=== PATIENT | male | born 1935 | race Caucasian/White ===

== ENCOUNTER 2022-07-25 07:06 | Outpatient (NON) | payer MEDICARE, SELFPAY ==
[2022-07-25 07:29] LABS: Basophils Absolute Auto 0.01 K/mm3 (0.00-0.10); Basophils Percent Auto 0.2 % (0.0-1.0); Eosinophils Absolute Auto 0.02 K/mm3 (0.02-0.50); Eosinophils Percent Auto 0.4 % (1.0-6.0); Hematocrit 33.3 % (37.0-46.0); Hemoglobin 11.2 g/dL (12.4-15.3); Immature Granulocyte Absolute 0.02 K/mm3 (0.00-0.00); Immature Granulocyte Percent A 0.4 % (0.0-0.0); Lymphocytes Absolute Auto 0.45 K/mm3 (1.10-4.50); Lymphocytes Percent Auto 8.9 % (18.0-42.0); Mean Corpuscular HGB Conc 33.6 g/dL (32.0-36.0); Mean Corpuscular Hemoglobin 30.9 pg (27.0-31.0); Mean Corpuscular Volume 91.7 fL (78.0-102.0); Mean Platelet Volume 9.3 fl (8.7-11.0); Monocytes Absolute Auto 0.72 K/mm3 (0.10-0.90); Monocytes Percent Auto 14.2 % (2.0-11.0); Neutrophils Absolute Auto 3.9 K/mm3 (1.7-7.2); Neutrophils Percent Auto 75.9 % (50.0-70.0); Platelet Count Result 246 K/mm3 (150-420); Red Blood Count 3.63 M/mm3 (4.70-6.10); Red Cell Distribution Width 14.2 % (11.6-14.4); White Blood Count 5.1 K/mm3 (4.8-10.8)
[2022-07-25 08:00] LABS: Alanine Aminotransferase 40 U/L (16-63); Albumin Level 2.7 g/dL (3.4-5.0); Alkaline Phosphatase 116 U/L (46-116); Anion Gap 5 mmol/L (8-16); Aspartate Amino Transferase 27 U/L (15-37); Bilirubin,Total 0.9 mg/dL (0.00-1.00); Blood Urea Nitrogen 18 mg/dL (7-18); Calcium 8.2 mg/dL (8.5-10.1); Carbon Dioxide 30 mmol/L (21-32); Chloride 94 mmol/L (98-108); Cholesterol 83 mg/dL (0-200); Estimated Glomerular Filt Rate > 60; Glucose 84 mg/dL (70-99); HDL Direct 40 mg/dL (40-60); LDL Cholesterol Calculated 36 mg/dL (<130); Osmolality Calculated 268 mOsm/kg (285-295); Potassium 4.8 mmol/L (3.5-5.1); Sodium 129 mmol/L (136-145); Total Protein 5.8 g/dL (6.4-8.2); Triglycerides 34 mg/dL (0-150)
[2022-07-25 08:25] LABS: INR 1.1
== END 2022-07-25 07:07 | disposition home or self-care (01) ==
PROVIDERS: Visit Provider Family Medicine
DX: E07.9 Disorder of thyroid, unspecified (principal); I82.409 Acute embolism and thrombosis of unspecified deep veins of unspecified lower extremity; E87.1 Hypo-osmolality and hyponatremia; E78.5 Hyperlipidemia, unspecified
CPT/HCPCS: 36415; 80053; 80061; 85025; 85610

== ENCOUNTER 2022-08-01 06:37 | Outpatient (NON) | payer MEDICARE, SELFPAY ==
[2022-08-01 07:20] LABS: Alanine Aminotransferase 37 U/L (16-63); Albumin Level 2.9 g/dL (3.4-5.0); Alkaline Phosphatase 117 U/L (46-116); Anion Gap 5 mmol/L (8-16); Aspartate Amino Transferase 24 U/L (15-37); Bilirubin,Total 0.9 mg/dL (0.00-1.00); Blood Urea Nitrogen 12 mg/dL (7-18); Calcium 8.7 mg/dL (8.5-10.1); Carbon Dioxide 31 mmol/L (21-32); Chloride 96 mmol/L (98-108); Estimated Glomerular Filt Rate > 60; Glucose 87 mg/dL (70-99); Osmolality Calculated 272 mOsm/kg (285-295); Potassium 4.7 mmol/L (3.5-5.1); Sodium 132 mmol/L (136-145); Total Protein 6.6 g/dL (6.4-8.2)
== END 2022-08-01 06:38 | disposition home or self-care (01) ==
LOC: CHSLAB 06:39
PROVIDERS: Visit Provider Family Medicine
DX: I48.91 Unspecified atrial fibrillation (principal); I50.9 Heart failure, unspecified
CPT/HCPCS: 36415; 80053

== ENCOUNTER 2022-08-29 06:28 | Outpatient (CLI) | payer MEDICARE, SELFPAY ==
--- NOTE | ~2022-08-29 | XR_ITS ---
Portable chest x-ray Comparison: 08/10/2017 Clinical History: CHF Findings: There is minimal bibasilar interstitial prominence. Cardiomediastinal silhouette is stabl e, with pacemaker device, and aortic valve replacement. Bones and soft tissues are unremarkable. Impression: Possible minimal bibasilar chronic interstitial disease or interstitial edema. Status post aortic valve replacement, with pacemaker device. Reviewed, dictated and finalized at [facility]. [facility] Impression: Possible minimal bibasilar chronic interstitial disease or interstitial edema. Status post aortic valve replacement, with pacemaker device.
[2022-08-29 06:45] LABS: Basophils Absolute Auto 0.01 K/mm3 (0.00-0.10); Basophils Percent Auto 0.2 % (0.0-1.0); Eosinophils Absolute Auto 0.16 K/mm3 (0.02-0.50); Eosinophils Percent Auto 3.2 % (1.0-6.0); Hematocrit 40.9 % (37.0-46.0); Immature Granulocyte Absolute 0.01 K/mm3 (0.00-0.00); Immature Granulocyte Percent A 0.2 % (0.0-0.0); Lymphocytes Absolute Auto 0.92 K/mm3 (1.10-4.50); Lymphocytes Percent Auto 18.5 % (18.0-42.0); Mean Corpuscular HGB Conc 31.8 g/dL (32.0-36.0); Mean Corpuscular Hemoglobin 30.2 pg (27.0-31.0); Mean Corpuscular Volume 95.1 fL (78.0-102.0); Mean Platelet Volume 8.8 fl (8.7-11.0); Monocytes Absolute Auto 0.56 K/mm3 (0.10-0.90); Monocytes Percent Auto 11.3 % (2.0-11.0); Neutrophils Absolute Auto 3.3 K/mm3 (1.7-7.2); Neutrophils Percent Auto 66.6 % (50.0-70.0); Platelet Count Result 241 K/mm3 (150-420); Red Cell Distribution Width 14.8 % (11.6-14.4)
[2022-08-29 07:09] LABS: Alanine Aminotransferase 30 U/L (16-63); Albumin Level 2.6 g/dL (3.4-5.0); Alkaline Phosphatase 129 U/L (46-116); Anion Gap 3 mmol/L (8-16); Aspartate Amino Transferase 24 U/L (15-37); Bilirubin,Total 0.7 mg/dL (0.00-1.00); Blood Urea Nitrogen 11 mg/dL (7-18); Calcium 8.6 mg/dL (8.5-10.1); Carbon Dioxide 34 mmol/L (21-32); Chloride 98 mmol/L (98-108); Estimated Glomerular Filt Rate > 60; Glucose 84 mg/dL (70-99); NT Pro B Type Natriuretic Pept 2243 pg/mL (0-450); Osmolality Calculated 278 mOsm/kg (285-295); Potassium 4.7 mmol/L (3.5-5.1); Sodium 135 mmol/L (136-145); Total Protein 6.3 g/dL (6.4-8.2)
[2022-08-29 07:12] LABS: Creatinine Urine < 13.00 mg/dL (40-278); Microalbumin Urine Random < 13.0 mg/L
--- NOTE | 2022-08-29 10:13 | ECG_ITS ---
Rate 70 SC 0 QRSd 161 QT 457 QTc 494 --Hermann-- P QRS 196 T 27 ELECTRONIC VENTRICULAR PACEMAKER BASELINE ARTIFACT- I, II, III, AVR, AVL, AVF, V1-V6 NO FURTHER INTERPRETATION IS POSSIBLE ATYPICAL ECG NO PREVIOUS ECG AVAILABLE FOR COMPARISON Electronically Signed On 08-29-2022 10:26:09 BROOMMAKER by Rhett BOLDEN
== END 2022-08-29 06:29 | disposition home or self-care (01) ==
PROVIDERS: PCP Family Medicine; Visit Provider Family Medicine
DX: I50.9 Heart failure, unspecified (principal); E87.1 Hypo-osmolality and hyponatremia; I48.91 Unspecified atrial fibrillation
CPT/HCPCS: 36415; 71045; 80053; 82043; 83880; 85025; 93005

== ENCOUNTER 2022-09-10 12:42 | Outpatient (CLI) | payer MEDICARE, SELFPAY ==
--- NOTE | ~2022-09-10 | US_ITS ---
EXAMINATION: US venous doppler UE RT DATE: 09/10/2022 13:59 INDICATION: Right hand swelling, redness, and pain TECHNIQUE: Grayscale ultrasound images without and with compression and Doppler ultrasound images of the right upper extremity veins were obtained. COMPARISON: X-ray chest, same date. FINDINGS: The right internal jugular and ulnar veins were not identified. The visualized portions of the right internal jugular vein, subclavian vein, axillary vein, brachial veins, basilic vein, cephalic vein, a nd radial vein are patent. IMPRESSION: 1. Right internal jugular and ulnar veins not identified. 2. No deep venous thrombosis in the remaining visualized veins. Reviewed, dictated and finalized at location K.
--- NOTE | ~2022-09-10 | XR_ITS ---
Clinical Indication: Cough AP and lateral views of the chest: Comparison: 08/29/2022 Findings: There is extensive groundglass pulmonary disease, most compatible moderate pulmonary edema versus possibly multifocal pneumonia.. Cardiomediastinal silhouette is stable, with aortic valve rep lacement and pacemaker device present. Bones and soft tissues are unremarkable. Impression: Extensive groundglass pulmonary disease. Correlate for pulmonary edema versus pneumonia. Aortic valve replacement and pacemaker device present. Reviewed, dictated and finalized at location . Impression: Extensive groundglass pulmonary disease. Correlate for pulmonary edema versus p neumonia. Aortic valve replacement and pacemaker device present.
[2022-09-10 12:58] LABS: Basophils Absolute Auto 0.01 K/mm3 (0.00-0.10); Basophils Percent Auto 0.1 % (0.0-1.0); Hematocrit 36.2 % (37.0-46.0); Hemoglobin 11.7 g/dL (12.4-15.3); Immature Granulocyte Absolute 0.05 K/mm3 (0.00-0.00); Immature Granulocyte Percent A 0.4 % (0.0-0.0); Lymphocytes Absolute Auto 0.66 K/mm3 (1.10-4.50); Lymphocytes Percent Auto 5.9 % (18.0-42.0); Mean Corpuscular HGB Conc 32.3 g/dL (32.0-36.0); Mean Corpuscular Hemoglobin 30.6 pg (27.0-31.0); Mean Corpuscular Volume 94.8 fL (78.0-102.0); Mean Platelet Volume 8.2 fl (8.7-11.0); Monocytes Absolute Auto 0.84 K/mm3 (0.10-0.90); Monocytes Percent Auto 7.5 % (2.0-11.0); Neutrophils Absolute Auto 9.7 K/mm3 (1.7-7.2); Neutrophils Percent Auto 86.1 % (50.0-70.0); Platelet Count Result 241 K/mm3 (150-420); Red Blood Count 3.82 M/mm3 (4.70-6.10); Red Cell Distribution Width 15.1 % (11.6-14.4); White Blood Count 11.2 K/mm3 (4.8-10.8)
[2022-09-10 13:19] LABS: Alanine Aminotransferase 16 U/L (16-63); Albumin Level 2.5 g/dL (3.4-5.0); Alkaline Phosphatase 92 U/L (46-116); Anion Gap 7 mmol/L (8-16); Aspartate Amino Transferase 18 U/L (15-37); Bilirubin,Total 1.3 mg/dL (0.00-1.00); Blood Urea Nitrogen 25 mg/dL (7-18); Calcium 8.3 mg/dL (8.5-10.1); Carbon Dioxide 28 mmol/L (21-32); Chloride 94 mmol/L (98-108); Estimated Glomerular Filt Rate > 60; Glucose 112 mg/dL (70-99); NT Pro B Type Natriuretic Pept 7067 pg/mL (0-450); Osmolality Calculated 273 mOsm/kg (285-295); Potassium 4.5 mmol/L (3.5-5.1); Sodium 129 mmol/L (136-145); Total Protein 6.8 g/dL (6.4-8.2); Troponin I 15.2 ng/L (0.00-60.4)
== END 2022-09-10 12:43 | disposition home or self-care (01) ==
LOC: CHSLAB 12:44
PROVIDERS: PCP Family Medicine; Visit Provider Family Medicine
DX: R13.10 Dysphagia, unspecified (principal); J98.4 Other disorders of lung; Z95.2 Presence of prosthetic heart valve; Z95.0 Presence of cardiac pacemaker; I50.9 Heart failure, unspecified; M79.89 Other specified soft tissue disorders
CPT/HCPCS: 36415; 71046; 80053; 83880; 84484; 85025; 93971

== ENCOUNTER 2022-09-10 14:15 | Observation (INO) | payer MEDICARE, SELFPAY ==
[2022-09-10] VITALS (21 sets, daily range): BP systolic 100–117; BP diastolic 46–72; PULSE 70–86; RESP 15–33; TEMP 36.5–36.7; O2SAT 86–96; BMI 23.0
--- NOTE | 2022-09-10 14:16 | ED.SOB ---
HPI - SOB/Dyspnea General Chief Complaint: Shortness of Breath/Dyspnea Stated Complaint: coughing uo blood Time Seen by Provider: 09/10/22 14:16 Source: RN notes reviewed Mode of arrival: wheelchair Limitations: dementia History of Present Illness HPI Narrative: I was called by patient's primary care physician. senior living staff had reported that he had had a decreased interaction with staff was requiring supplemental oxygen and had coarse breath sounds. His PCP examined him and found him to have significant amount of rhonchi and rales. Outpatient labs were done as well as chest x-ray showing pneumonia versus pulmonary edema. His BNP is elevated as well as his white count slightly elevated 11.2. MD elicited complaint: shortness of breath Pertinent past history: congestive heart failure Onset (ago): day(s) (1) Timing: constant Severity: moderate Exacerbating factors: lying flat and exertion Relieving factors: oxygen Known history of: congestive heart failure Treatment prior to arrival: oxygen Related Data Home oxygen amount: 2 liters Home Medications Medication Instructions Recorded Confirmed B-complex with vitamin C 1 cap PO DAILY 07/24/22 09/10/22 acetaminophen 325 mg tablet 650 mg PO Q6H PRN Pain 07/24/22 09/10/22 (Pharbetol) albuterol sulfate 90 mcg/actuation 2 inh inhalation .Once Daily 07/24/22 09/10/22 aerosol inhaler (ProAir HFA) ascorbic acid (vitamin C) 500 mg 250 mg PO DAILY 07/24/22 09/10/22 tablet aspirin 81 mg tablet,delayed 81 mg PO DAILY 07/24/22 09/10/22 release (Adult Low Dose Aspirin) atorvastatin 40 mg tablet 40 mg PO QHS 07/24/22 09/10/22 cholecalciferol (vitamin D3) 25 25 mcg PO DAILY 07/24/22 09/10/22 mcg (1,000 unit) tablet furosemide 40 mg tablet 40 mg PO QAM 07/24/22 09/10/22 hydrocortisone 2.5 % topical cream 1 applic RECTAL Q12H PRN 07/24/22 09/10/22 with perineal applicator Hemorrhoids (Procto-Med HC) lisinopril 2.5 mg tablet 2.5 mg PO DAILY 07/24/22 09/10/22 metoprolol tartrate 25 mg tablet 25 mg PO BID 07/24/22 09/10/22 omeprazole 20 mg capsule,delayed 20 mg PO BID 07/24/22 09/10/22 release gabapentin 300 mg capsule 300 mg PO TID 09/10/22 09/10/22 loratadine 10 mg tablet 10 mg PO DAILY 09/10/22 09/10/22 Allergies Allergy/AdvReac Type Severity Reaction Status Date / Time ibuprofen Allergy Unknown Unknown Verified 09/10/22 14:42 iodine Allergy Unknown Unknown Verified 09/10/22 14:42 lactose Allergy Unknown Unknown Verified 09/10/22 14:42 Penicillins Allergy Unknown Unknown Verified 09/10/22 14:42 Tomato Allergy Unknown Unknown Uncoded 09/10/22 14:42 Review of Systems Review of Systems: ROS unobtainable: Yes unobtainable due to mental status ( dementia) PMFSH Past Medical History Medical History Acute embolism and thrombosis of unspecified deep veins of unspecified lower extremity Atrial fibrillation CAD (coronary artery disease) Cellulitis of right upper limb Disorder of thyroid, unspecified Gastro-esophageal reflux disease without esophagitis Heart failure Hyperlipidemia Hypo-osmolality and hyponatremia Malignant neoplasm of prostate Presence of automatic (implantable) cardiac defibrillator Sleep apnea Surgical History Surgical History Presence of xenogenic heart valve Social History Social History Smoking status: Never smoker Exam Const: General: alert, confusion (not new) and ill appearing chronically Nutritional Appearance: well nourished Limitations: other limitations ( dementia) HENMT: Head: normal to inspection Ears: external ears normal Face/Nose/Sinus: Normal external nose present Face and sinus: normal facial exam Mouth: Yes moist mucous membranes Eyes: Conjunctivae: conjunctivae normal Pupils: Equal, round and reactive pupils present EOM: EOMs intact bilaterally Neck: Ne
[2022-09-10 15:11] LABS: SARS-CoV-2 RNA PCR Negative (Negative)
[2022-09-10 15:49] LABS: Lactic Acid Reflex 2.2 mmol/L (0.4-2.0)
[2022-09-10] MEDS: SODIUM CHLORIDE 0.9% IV 1,000 ML 150 ML IV CONT (16:18)
--- NOTE | 2022-09-10 16:58 | PC.NURSE ---
NS continued during admission.
[2022-09-10] MEDS: FUROSEMIDE INJ 40 MG/4 ML VIAL IV PUSH (17:20)
[2022-09-10] MEDS: SODIUM CHLORIDE 0.9% IV 1,000 ML 999 ML IV CONT (17:23)
--- NOTE | 2022-09-10 17:56 | ADMGEN ---
This patient, Hao Martinez, was admitted to 2nd Floor Room 208-2. Patient/family oriented to hospital policies and general routines including ID bracelet, bed and alarms, visiting hours, pain management, procedures, bathroom and other care routines, personal items, smoking policy, room service/diet, and visiting hours. Daughter reports he is on a pureed diet at the ut and honey thick liquids Information on how to activate the Rapid Response Team has been discussed. Patient/Family are encouraged to report perceived risks to care and to ask questions if they do not understand what they are told or what they should do.
[2022-09-10] MEDS: METOPROLOL TARTRATE 25 MG TABLET PO (18:05)
[2022-09-10] MEDS: APIXABAN 2.5 MG TABLET 5 MG PO (18:05)
[2022-09-10] MEDS: GABAPENTIN 300 MG CAPSULE PO (18:06)
[2022-09-10 18:26] LABS: Reflex Lactic Acid Yes or No Add Lactic
[2022-09-10] MEDS: IPRATROPIUM 0.5 MG/ALBUTEROL SULFATE 2.5 MG AMPUL.NEB 3 ML INHALATION ×2 (18:34→23:35)
[2022-09-10 19:07] LABS: Lactic Acid 2.4 mmol/L (0.4-2.0)
[2022-09-10] MEDS: traZODone HCL 50 MG TABLET PO (20:28)
[2022-09-10] MEDS: ATORVASTATIN 40 MG TABLET PO (20:28)
[2022-09-10] MEDS: ACETAMINOPHEN 325 MG TABLET 650 MG PO (20:28)
[2022-09-11] VITALS (17 sets, daily range): BP systolic 103–120; BP diastolic 40–71; PULSE 52–86; RESP 16–20; TEMP 36.3–37.1; O2SAT 89–97
[2022-09-11] MEDS: IPRATROPIUM 0.5 MG/ALBUTEROL SULFATE 2.5 MG AMPUL.NEB 3 ML INHALATION ×4 (05:06→23:45)
[2022-09-11 05:11] LABS: Hematocrit 34.1 % (37.0-46.0); Hemoglobin 10.9 g/dL (12.4-15.3); Mean Corpuscular Hemoglobin 30.6 pg (27.0-31.0); Mean Corpuscular Volume 95.8 fL (78.0-102.0); Mean Platelet Volume 8.4 fl (8.7-11.0); Platelet Count Result 202 K/mm3 (150-420); Red Blood Count 3.56 M/mm3 (4.70-6.10); Red Cell Distribution Width 15.3 % (11.6-14.4); White Blood Count 6.3 K/mm3 (4.8-10.8)
[2022-09-11 05:28] LABS: Albumin Level 2.2 g/dL (3.4-5.0); Alkaline Phosphatase 78 U/L (46-116); Anion Gap 7 mmol/L (8-16); Aspartate Amino Transferase 20 U/L (15-37); Bilirubin,Total 1.1 mg/dL (0.00-1.00); Blood Urea Nitrogen 25 mg/dL (7-18); Calcium 8.3 mg/dL (8.5-10.1); Carbon Dioxide 29 mmol/L (21-32); Chloride 97 mmol/L (98-108); Estimated CRCL calculation 47 ml/min; Estimated Glomerular Filt Rate > 60; Glucose 107 mg/dL (70-99); Osmolality Calculated 280 mOsm/kg (285-295); Potassium 4.4 mmol/L (3.5-5.1); Sodium 133 mmol/L (136-145); Total Protein 6.2 g/dL (6.4-8.2)
[2022-09-11 05:35] LABS: Alanine Aminotransferase < 6 U/L (16-63)
[2022-09-11] MEDS: PANTOPRAZOLE SODIUM IV 40 MG VIAL IV PUSH (09:03)
[2022-09-11] MEDS: lisinopriL 2.5 MG TABLET PO (09:03)
[2022-09-11] MEDS: ASCORBIC ACID 250 MG TABLET PO (09:03)
[2022-09-11] MEDS: APIXABAN 2.5 MG TABLET 5 MG PO ×2 (09:04→16:52)
[2022-09-11] MEDS: SODIUM CHLORIDE 1 GM TABLET PO (09:04)
[2022-09-11] MEDS: CHOLECALCIFEROL 1,000 UNITS TABLET 1000 UNITS PO (09:06)
[2022-09-11] MEDS: METOPROLOL TARTRATE 25 MG TABLET PO (09:06)
[2022-09-11] MEDS: FUROSEMIDE 40 MG TABLET PO (09:06)
[2022-09-11] MEDS: LORATADINE 10 MG TABLET PO (09:06)
[2022-09-11] MEDS: ASPIRIN 81 MG ENTERIC TABLET PO (09:06)
[2022-09-11] MEDS: GABAPENTIN 300 MG CAPSULE PO ×3 (09:07→16:52)
[2022-09-11] MEDS: ACETAMINOPHEN 325 MG TABLET 650 MG PO (09:25)
[2022-09-11] MEDS: HYDROcodone/acetaminophen (*CRX) 5-325 MG TABLET 1 TAB PO ×2 (10:40→19:36)
--- NOTE | 2022-09-11 13:07 | PM.IMHP ---
H&P: HPI History of Present Illness Date/Time: 09/11/22 13:07 Chief Complaint: abnormal labs, leukocytosis, hypoxia Narrative: this is 87-year-old male that presents from the alf with abnormal labs hypoxia and pneumonia requiring oxygen. Patient has oxygen p.r.n. at the alf to be treated with IV antibiotics well as breathing treatments and steroids. Patient's white blood count has risen to normal with hyponatremic at 1:29 a.m. currently sodium is 133 patient is on 2 L of oxygen in which is maintained about what the alf we will start some IV azithromycin as well as continue IV Rocephin on discharge patient will receive oral azithromycin for the pneumonia we will continue to monitor for fever patient is already on a pureed diet and is being seen at the alf this patient is already been noted. Review of Systems Review of Systems: Hypoxia, pneumonia, abnormal lab All systems reviewed & are unremarkable except as noted in HPI and below PMFSH Past Medical History Medical History Acute embolism and thrombosis of unspecified deep veins of unspecified lower extremity Atrial fibrillation CAD (coronary artery disease) Cellulitis of right upper limb Disorder of thyroid, unspecified Gastro-esophageal reflux disease without esophagitis Heart failure Hyperlipidemia Hypo-osmolality and hyponatremia Malignant neoplasm of prostate Presence of automatic (implantable) cardiac defibrillator Sleep apnea Surgical History Surgical History Presence of xenogenic heart valve Social History Social History Smoking status: Never smoker Second hand tobacco smoke exposure: Yes Alcohol intake: never Substance use: never Substance use type: does not use Lack of Transportation: No Lack of Food: Never True Current Housing: I Have Housing Concerned About Future Housing: No Difficulty Paying Gas/Electric Bills: No Difficulty Paying for Meds: No Currently Unemployed: No Education: Associate Degree Difficulty w/ Childcare or Family Care: No Spiritual care concerns: No Comments At time as signature, I have reviewed and agree with nursing past medical, social, surgical and family history. Please see nursing chart for further information. There is no relevant family history pertinent to the presenting complaint. Meds Home Medications and Allergies Home Medications Medication Instructions Recorded Confirmed Type B-complex with vitamin C 1 cap PO DAILY 07/24/22 09/10/22 History acetaminophen 325 mg tablet 650 mg PO Q6H PRN Pain 07/24/22 09/10/22 History (Pharbetol) albuterol sulfate 90 mcg/actuation 2 inh inhalation .Once Daily 07/24/22 09/10/22 History aerosol inhaler (ProAir HFA) ascorbic acid (vitamin C) 500 mg 250 mg PO DAILY 07/24/22 09/10/22 History tablet aspirin 81 mg tablet,delayed 81 mg PO DAILY 07/24/22 09/10/22 History release (Adult Low Dose Aspirin) atorvastatin 40 mg tablet 40 mg PO QHS 07/24/22 09/10/22 History cholecalciferol (vitamin D3) 25 25 mcg PO DAILY 07/24/22 09/10/22 History mcg (1,000 unit) tablet furosemide 40 mg tablet 40 mg PO QAM 07/24/22 09/10/22 History hydrocortisone 2.5 % topical cream 1 applic RECTAL Q12H PRN 07/24/22 09/10/22 History with perineal applicator Hemorrhoids (Procto-Med HC) lisinopril 2.5 mg tablet 2.5 mg PO DAILY 07/24/22 09/10/22 History metoprolol tartrate 25 mg tablet 25 mg PO BID 07/24/22 09/10/22 History omeprazole 20 mg capsule,delayed 20 mg PO BID 07/24/22 09/10/22 History release acetaminophen 500 mg tablet 500 mg PO Q6H PRN fever or pain 07/25/22 09/10/22 Rx (Tylenol Extra Strength) #90 tabs sodium chloride 1,000 mg soluble 1,000 mg PO DAILY #90 tabs 07/25/22 09/10/22 Rx tablet apixaban 5 mg tablet 5 mg PO BID #180 tabs 07/26/22 03
--- NOTE | 2022-09-11 16:32 | PC.NURSE ---
Patient BP 120/40. Charge nurse notified. New order received to hold IV lasix and metoprolol at 1700.
--- NOTE | 2022-09-11 17:24 | PC.NURSE ---
Patient had pasty BM x3. Does not notify nurse when he has had a BM. Hands have been covered in BM and spread on blankets.
[2022-09-11] MEDS: ATORVASTATIN 40 MG TABLET PO (20:25)
[2022-09-11] MEDS: traZODone HCL 50 MG TABLET PO (20:25)
[2022-09-12] VITALS (7 sets, daily range): BP systolic 120; BP diastolic 50; PULSE 58–78; RESP 16–22; TEMP 36.2; O2SAT 89–92
[2022-09-12 05:17] LABS: Hematocrit 29.2 % (37.0-46.0); Hemoglobin 9.6 g/dL (12.4-15.3); Mean Corpuscular HGB Conc 32.9 g/dL (32.0-36.0); Mean Corpuscular Volume 94.2 fL (78.0-102.0); Mean Platelet Volume 8.5 fl (8.7-11.0); Platelet Count Result 206 K/mm3 (150-420); Red Cell Distribution Width 15.3 % (11.6-14.4); White Blood Count 6.8 K/mm3 (4.8-10.8)
[2022-09-12 05:26] LABS: Anion Gap 5 mmol/L (8-16); Blood Urea Nitrogen 21 mg/dL (7-18); Calcium 8.2 mg/dL (8.5-10.1); Carbon Dioxide 30 mmol/L (21-32); Chloride 96 mmol/L (98-108); Estimated CRCL calculation 58 ml/min; Estimated Glomerular Filt Rate > 60; Glucose 112 mg/dL (70-99); Osmolality Calculated 276 mOsm/kg (285-295); Potassium 4.6 mmol/L (3.5-5.1); Sodium 131 mmol/L (136-145)
[2022-09-12] MEDS: IPRATROPIUM 0.5 MG/ALBUTEROL SULFATE 2.5 MG AMPUL.NEB 3 ML INHALATION ×2 (06:21→11:51)
[2022-09-12] MEDS: FUROSEMIDE INJ 20 MG/2 ML VIAL IV PUSH (09:23)
[2022-09-12] MEDS: ENOXAPARIN 40 MG/0.4 ML SYRINGE SUB-Q (09:23)
[2022-09-12] MEDS: PANTOPRAZOLE SODIUM IV 40 MG VIAL IV PUSH (09:23)
[2022-09-12] MEDS: ASCORBIC ACID 250 MG TABLET PO (09:24)
[2022-09-12] MEDS: lisinopriL 2.5 MG TABLET PO (09:24)
[2022-09-12] MEDS: GABAPENTIN 300 MG CAPSULE PO (09:25)
[2022-09-12] MEDS: METOPROLOL TARTRATE 25 MG TABLET PO (09:25)
[2022-09-12] MEDS: APIXABAN 2.5 MG TABLET 5 MG PO (09:25)
[2022-09-12] MEDS: CHOLECALCIFEROL 1,000 UNITS TABLET 1000 UNITS PO (09:25)
[2022-09-12] MEDS: ASPIRIN 81 MG ENTERIC TABLET PO (09:25)
[2022-09-12] MEDS: LORATADINE 10 MG TABLET PO (09:26)
[2022-09-12] MEDS: SODIUM CHLORIDE 1 GM TABLET PO (09:26)
--- NOTE | 2022-09-12 12:24 | PM.DS ---
DS: Admitting Diagnosis Discharge Date 09/12/2022 Admitting Diagnosis Pneumonia, Hypoxia DS: Discharge Diagnosis Discharge Diagnosis (1) Pneumonia: Qualifiers: Laterality: bilateral Lung location: lower lobe of lung Pneumonia type: due to unspecified organism Qualified Code(s): J18.9 - Pneumonia, unspecified organism Code(s): J18.9 - Pneumonia, unspecified organism Status: Acute Assessment and Plan: IV antibiotic, Rocephin, Azithromycin IV steroids breathing treatments Oxygen as needed (2) Dysphagia: Code(s): R13.10 - Dysphagia, unspecified Status: Acute Assessment and Plan: Pureeed diet h head of the bed elevated (3) Aspiration pneumonia: Code(s): J69.0 - Pneumonitis due to inhalation of food and vomit Status: Acute Assessment and Plan: Head of the bed elevated when eating Assist with eating (4) Gastro-esophageal reflux disease without esophagitis: Code(s): K21.9 - Gastro-esophageal reflux disease without esophagitis Status: Acute Assessment and Plan: IV protonix (5) Atrial fibrillation: Code(s): I48.91 - Unspecified atrial fibrillation Status: Acute Assessment and Plan: Eliquis BB stable (6) Heart failure: Code(s): I50.9 - Heart failure, unspecified Status: Acute Assessment and Plan: IV lasix monitor vitals DS: Summary Hospital Course Reason for hospitalization: pneumonia with likely aspiration Hospital Course: this 87-year-old male that presented to the emergency room 24 hours after being discharged. Patient was admitted with congestive heart failure, pneumonia aspiration. On patient's previous discharge his labs have improved vitals were stable and he was sent home on oral antibiotics appropriate diet a nebulizer and oxygen at 2 L at the [facility]. patient is up in a recliner chair eating per read diet without any difficulties lungs remain slightly 4s no respiratory distress noted patient has remained afebrile he is talking we will discharge patient home or to the [facility] with a nebulizer, oral antibiotics, oral steroids. Discussion had with patient that he is possibly aspirating which could worsen his pneumonia patient is aware and still wants to eat upon discharge patient's vitals are 120/50 pulse is 78, respirations of 20, temp 97.2?, 91% on room air he will return back with oxygen which she has at the [facility] Time Spent with Patient Time attestation: Total time spent providing and/or coordinating discharge services: Exam Narrative: GENERAL: ill-appearing, well-nourished, and in no acute distress. HEAD:Normocephalic, atraumatic. EYES: PERRLA ENT: Nares clear, no rhinorrhea or epistaxis. Mucous membranes moist. CHEST: lungs on course auscultation. no respiratory distress. Oxygen HEART: Regular rate and rhythm. decreased peripheral pulses. ABDOMEN: Soft, nontender, nondistended, normal active bowel right EXTREMITIES: Normal range of motion. right foot 1+ edema( on anticoagulation) SKIN: Warm, dry, no rash. NEURO: No focal deficits. Alert and oriented x3.speech hard to understand DS: Data Data Completed and Pending Labs on day of discharge: Labs from last 24 hours 09/12/22 09/12/22 05:10 05:10 WBC 6.8 RBC 3.10 L Hgb 9.6 L Hct 29.2 L MCV 94.2 MCH 31.0 MCHC 32.9 RDW 15.3 H Plt Count 206 MPV 8.5 L Sodium 131 L Potassium 4.6 Chloride 96 L Carbon Dioxide 30 Anion Gap 5 L BUN 21 H Creatinine 0.92 Estim Creat Clear Calc 58 Estimated GFR > 60 Glucose 112 H Calculated Osmolality 276 L Calcium 8.2 L Preliminary micro results at discharge 09/10/22 15:22 Blood Culture - Preliminary Blood 09/10/22 15:22 Blood Culture - Preliminary Blood Discharge Plan Discharge Attending physician on discharge: Evelio Shankar Consulting providers: Marques Bui
--- NOTE | 2022-09-12 14:45 | PC.NURSE ---
Pt discharged back to [facility]. All personal item sent with pt. VSS.
--- NOTE | 2022-09-16 11:38 | PC.NURSE ---
retirement nurse states they received and understood the discharge instructions.
== END 2022-09-12 14:20 ==
LOC: CHSED 16:08 → CHS2ND 16:45
PROVIDERS: Nurse Practitioner; Nurse Practitioner Family; Admitting Provider Internal Medicine; Emergency Provider Emergency Medicine; PCP Family Medicine; Visit Provider Internal Medicine
DX: J18.9 Pneumonia, unspecified organism (principal); I50.9 Heart failure, unspecified; I48.20 Chronic atrial fibrillation, unspecified; I25.10 Atherosclerotic heart disease of native coronary artery without angina pectoris; C61 Malignant neoplasm of prostate; K21.9 Gastro-esophageal reflux disease without esophagitis; E78.2 Mixed hyperlipidemia; R13.10 Dysphagia, unspecified; G47.30 Sleep apnea, unspecified; Z20.822 Contact with and (suspected) exposure to COVID-19; Z86.718 Personal history of other venous thrombosis and embolism; Z95.810 Presence of automatic (implantable) cardiac defibrillator; Z79.01 Long term (current) use of anticoagulants; Z79.82 Long term (current) use of aspirin
CPT/HCPCS: 36415; 80048; 80053; 83605; 85027; 87040; 94640; 96361; 96365; 96366; 96367; 96372; 96375; 96376; 99285; A9270; C9113; G0378; J0456; J0696; J1650; J1940; J7030; U0003; U0005

== ENCOUNTER 2022-09-13 16:28 | Inpatient (IN) | payer MEDICARE, SELFPAY ==
[2022-09-13] VITALS (36 sets, daily range): BP systolic 104–179; BP diastolic 55–86; PULSE 57–82; RESP 18–34; TEMP 36.6–37.2; O2SAT 64–100
--- NOTE | ~2022-09-13 | XR_ITS ---
XR chest 1V portable 09/13/2022 17:40 Indication: Shortness of breath. Atrial fibrillation. Procedure: AP portable chest Comparison: 09/10/2022 Findings: Progression of extensive patchy bilateral airspace disease, consistent with pneumonia. [place]ab a less favored. Status post median sternotomy for CABG. Cardiomegaly. Pacemaker leads are stable. Impression: 1: Progression of extensive patchy bilateral airspace disease, most likely pneumonia versus edema. Reviewed, dictated and finalized at location A. Impression: 1: Progression of extensive patchy bilateral airspace disease, most likely pneu monia versus edema.
--- NOTE | ~2022-09-13 | CT_ITS ---
EXAMINATION: CT diagnostic chest wo con DATE: 09/13/2022 18:26 INDICATION: Lower extremity swelling. Pneumonia. Shortness of breath. TECHNIQUE: Computed tomography (CT) of the chest was performed without intravenous contrast. The dose -length product was 564.04 mGy-cm. Automated exposure control and iterative reconstruction technique were employed. COMPARISON: None FINDINGS: There is mediastinal lymphadenopathy. Cardiomegaly. Extensive atherosclerosis of the aorta and coronary arteries. No aneurysm. Small pleural effusions. There are bilateral renal cysts. There i s extensive patchy groundglass opacification in both lungs, consistent with pneumonia. No pneumothora x. No endobronchial lesions. There are pacemaker leads in the right atrium and right ventricle respec tively. IMPRESSION: 1. Extensive patchy bilateral groundglass opacities, consistent with pneumonia. 2: Small pleural effusions. 3: Cardiomegaly. 4.: Mediastinal lymph node enlargement, nonspecific. Reviewed, dictated and finalized at location A.
--- NOTE | 2022-09-13 16:51 | ECG_ITS ---
Measurements Intervals [place] Rate: 70 P: [place]: 0 QRS: 175 QRSD: 163 T: 8 QT: 423 QTc: 459 Interpretive Statements ELECTRONIC VENTRICULAR PACEMAKER BASELINE ARTIFACT- I, II, III, AVR, AVL, AVF, V1-V6 NO FURTHER INTERPRETATION IS POSSIBLE ATYPICAL ECG COMPARED TO ECG 08/29/2022 10:13:40 NO SIGNIFICANT CHANGES Electronically Signed On 09-14-2022 8:15:59 CDT by Rhett Sellers D.O.
--- NOTE | 2022-09-13 17:03 | ED.GENADULT ---
HPI - General Adult General Chief complaint: Shortness of Breath/Dyspnea Stated complaint: ambulance Time Seen by Provider: 09/13/22 17:02 History of Present Illness HPI narrative: the patient is an 87-year-old male full code, who was just admitted here from 09/10 until 09/12/2022, discharged yesterday. He was admitted for aspiration pneumonia of both lower lobes in the setting of congestive heart failure. Received Rocephin and azithromycin intravenously as well as oxygen and nebulized treatments. He was discharged to the senior care on oral azithromycin. He is anticoagulated with Eliquis for atrial fibrillation. He has had a prior aortic valve replacement. He does have coronary artery disease, and has an ICD. Also with hypertension hyperlipidemia, heart failure reduced ejection fraction, Lasix 40 mg daily. History of DVT and GERD. History of prostate cancer. At the senior care, the patient has decompensated. He feels short of breath. Oxygen saturations are 89% on 6 L. he feels weak and tired. No chest pain or abdominal pain. No nausea or vomiting. Does have significant pedal edema. No other complaints. Presents for further evaluation. Related Data Home Medications Medication Instructions Recorded Confirmed B-complex with vitamin C 1 cap PO DAILY 07/24/22 09/13/22 acetaminophen 325 mg tablet 650 mg PO Q6H PRN Pain 07/24/22 09/13/22 (Pharbetol) albuterol sulfate 90 mcg/actuation 2 inh inhalation .Once Daily 07/24/22 09/13/22 aerosol inhaler (ProAir HFA) ascorbic acid (vitamin C) 500 mg 250 mg PO DAILY 07/24/22 09/13/22 tablet aspirin 81 mg tablet,delayed 81 mg PO DAILY 07/24/22 09/13/22 release (Adult Low Dose Aspirin) atorvastatin 40 mg tablet 40 mg PO QHS 07/24/22 09/13/22 cholecalciferol (vitamin D3) 25 25 mcg PO DAILY 07/24/22 09/13/22 mcg (1,000 unit) tablet furosemide 40 mg tablet 40 mg PO QAM 07/24/22 09/13/22 hydrocortisone 2.5 % topical cream 1 applic RECTAL Q12H PRN 07/24/22 09/13/22 with perineal applicator Hemorrhoids (Procto-Med HC) lisinopril 2.5 mg tablet 2.5 mg PO DAILY 07/24/22 09/13/22 metoprolol tartrate 25 mg tablet 25 mg PO BID 07/24/22 09/13/22 omeprazole 20 mg capsule,delayed 20 mg PO BID 07/24/22 09/13/22 release gabapentin 300 mg capsule 300 mg PO TID 09/10/22 09/13/22 loratadine 10 mg tablet 10 mg PO DAILY 09/10/22 09/13/22 Allergies Allergy/AdvReac Type Severity Reaction Status Date / Time ibuprofen Allergy Unknown Unknown Verified 09/10/22 14:42 iodine Allergy Unknown Unknown Verified 09/10/22 14:42 lactose Allergy Unknown Unknown Verified 09/10/22 14:42 Penicillins Allergy Unknown Unknown Verified 09/10/22 14:42 Tomato Allergy Unknown Unknown Uncoded 09/10/22 14:42 Review of Systems Review of Systems: All systems reviewed & are unremarkable except as noted in HPI and below Constitutional: Constitutional: Reports as per HPI, Reports no additional constitutional complaints, Denies chills, Denies excessive sweating, Reports fatigue, Denies fever(s), Denies headache(s) and Reports weakness Eyes: Eyes: Reports as per HPI, Reports no additional eye complaints, Denies change in vision and Denies photophobia ENT: Reports system reviewed and no additional complaints, except as documented, Reports as per HPI, Denies dysphagia, Denies vertigo, Denies dizziness, Denies headache(s), Denies lip swelling, Denies nasal congestion, Denies sore throat, Denies throat swelling and Denies tongue swelling Cardiovascular: Cardiovascular: Reports as per HPI, Reports no additional cardiovascular complaints, Denies chest pain, Denies syncope, Denies rapid heart rate and Reports dyspnea Respiratory: Respiratory: Reports as per HPI, Reports no additional respiratory complaints, Reports chest congestion, Reports cough, Reports dyspnea and Denies wheezing Gastrointestinal: Gastrointestinal: Reports as per HPI, Reports no additional gastrointestinal complaints, Denies abdominal pain, Denies const
[2022-09-13 17:13] LABS: Basophils Absolute Auto 0.03 K/mm3 (0.00-0.10); Basophils Percent Auto 0.4 % (0.0-1.0); Eosinophils Absolute Auto 0.05 K/mm3 (0.02-0.50); Eosinophils Percent Auto 0.6 % (1.0-6.0); Hematocrit 32.8 % (37.0-46.0); Hemoglobin 10.2 g/dL (12.4-15.3); Immature Granulocyte Absolute 0.05 K/mm3 (0.00-0.00); Immature Granulocyte Percent A 0.6 % (0.0-0.0); Lymphocytes Absolute Auto 0.43 K/mm3 (1.10-4.50); Lymphocytes Percent Auto 5.6 % (18.0-42.0); Mean Corpuscular HGB Conc 31.1 g/dL (32.0-36.0); Mean Corpuscular Volume 99.7 fL (78.0-102.0); Mean Platelet Volume 8.6 fl (8.7-11.0); Monocytes Absolute Auto 0.99 K/mm3 (0.10-0.90); Monocytes Percent Auto 12.8 % (2.0-11.0); Neutrophils Absolute Auto 6.2 K/mm3 (1.7-7.2); Platelet Count Result 253 K/mm3 (150-420); Red Blood Count 3.29 M/mm3 (4.70-6.10); Red Cell Distribution Width 15.4 % (11.6-14.4); White Blood Count 7.7 K/mm3 (4.8-10.8)
[2022-09-13 17:38] LABS: Alanine Aminotransferase 12 U/L (16-63); Albumin Level 2.3 g/dL (3.4-5.0); Alkaline Phosphatase 85 U/L (46-116); Anion Gap 7 mmol/L (8-16); Aspartate Amino Transferase 14 U/L (15-37); Bilirubin,Total 0.7 mg/dL (0.00-1.00); Blood Urea Nitrogen 22 mg/dL (7-18); Calcium 8.5 mg/dL (8.5-10.1); Carbon Dioxide 29 mmol/L (21-32); Chloride 97 mmol/L (98-108); Estimated CRCL calculation 42 ml/min; Estimated Glomerular Filt Rate > 60; Glucose 123 mg/dL (70-99); NT Pro B Type Natriuretic Pept 6929 pg/mL (0-450); Osmolality Calculated 280 mOsm/kg (285-295); Potassium 4.5 mmol/L (3.5-5.1); Sodium 133 mmol/L (136-145); Troponin I 17.6 ng/L (0.00-60.4)
[2022-09-13 17:45] LABS: D Dimer 4.06 mg/L (0.19-0.50)
[2022-09-13 18:17] LABS: Lactic Acid Reflex 1.2 mmol/L (0.4-2.0)
[2022-09-13 18:20] LABS: Magnesium 1.6 mg/dL (1.8-2.4)
[2022-09-13 18:29] LABS: CRP > 25.0 mg/dL (0.0-0.9)
[2022-09-13 19:03] LABS: Base Excess ABG 3.6 mmol/L (0-2); HCO3 ABG 27.4 mmol/L (23-29); Oxygen Content ABG 15.5 %vol (16.0-22.0); Oxygen Saturation ABG 97.8 % (95-97); Oxyhemoglobin 97.4 % (94-100); PCO2 ABG 38.4 mmHg (35-45); PO2 ABG 111.3 mmHg (75-85); Total Hemoglobin 11.2 g/dL (12.0-18.0); pH ABG 7.47 (7.35-7.45)
[2022-09-13 19:07] LABS: Device SIMPLE MASK; Modified Allen's Test Pass; Site Drawn LEFT RADIAL
[2022-09-13] MEDS: FUROSEMIDE INJ 20 MG/2 ML VIAL 80 MG (19:26)
[2022-09-13 19:39] LABS: Strep Group A RT-PCR NOT DETECTED (Negative)
[2022-09-13 19:40] LABS: Influenza A QL RT-PCR Negative (Negative); Influenza B QL RT-PCR Negative (Negative); SARS-CoV-2 RNA PCR Negative (Negative)
[2022-09-13 19:43] LABS: RSV RNA, RT-PCR Negative (Negative)
--- NOTE | 2022-09-13 20:00 | PC.NURSE ---
Report received, pt resting c IVF infusing of Vanc as per order. Daughter at bedside. Decision made to admit pt.
[2022-09-13] MEDS: guaiFENesin/DEXTROMETHORPHAN 5 ML UDC 10 ML PO (21:43)
[2022-09-13] MEDS: MAGNESIUM SULF 2 GM/WATER 50ML 2 GM/50 ML BAG IVPB (21:43)
[2022-09-13] MEDS: BENZONATATE 100 MG CAPSULE PO (21:48)
--- NOTE | 2022-09-13 22:10 | PC.NURSE ---
Pt had O2 off of his face, noted SPO2 is 78%. Placed back on nonreb mask and SPO2 increased to 95%. Pt taken to floor for admit.
[2022-09-13] MEDS: IPRATROPIUM 0.5 MG/ALBUTEROL SULFATE 2.5 MG AMPUL.NEB 3 ML INHALATION (23:06)
[2022-09-14] VITALS (12 sets, daily range): BP systolic 106–123; BP diastolic 51–55; PULSE 69–74; RESP 20–22; TEMP 36.1–36.3; O2SAT 86–96
[2022-09-14 05:19] LABS: Hematocrit 29.3 % (37.0-46.0); Hemoglobin 9.5 g/dL (12.4-15.3); Mean Corpuscular HGB Conc 32.4 g/dL (32.0-36.0); Mean Corpuscular Hemoglobin 30.1 pg (27.0-31.0); Mean Corpuscular Volume 92.7 fL (78.0-102.0); Mean Platelet Volume 8.2 fl (8.7-11.0); Platelet Count Result 230 K/mm3 (150-420); Red Blood Count 3.16 M/mm3 (4.70-6.10); Red Cell Distribution Width 15.2 % (11.6-14.4); White Blood Count 6.1 K/mm3 (4.8-10.8)
[2022-09-14 05:35] LABS: Anion Gap 7 mmol/L (8-16); Blood Urea Nitrogen 19 mg/dL (7-18); Calcium 8.1 mg/dL (8.5-10.1); Carbon Dioxide 29 mmol/L (21-32); Chloride 97 mmol/L (98-108); Estimated CRCL calculation 62 ml/min; Estimated Glomerular Filt Rate > 60; Glucose 119 mg/dL (70-99); Osmolality Calculated 279 mOsm/kg (285-295); Potassium 3.3 mmol/L (3.5-5.1); Sodium 133 mmol/L (136-145)
[2022-09-14 05:49] LABS: Band Neutrophils Percent 0 % (0-6); Basophils Percent Manual 0 % (0-1); Eosinophils Absolute Manual 0.24 K/mm3 (0.02-0.5); Eosinophils Percent Manual 4 % (1-6); Lymphocytes Percent Manual 0 % (18-44); Monocytes Absolute Manual 0.91 K/mm3 (0.1-0.90); Monocytes Percent Manual 15 % (3-9); Neutrophils Absolute Manual 4.94 K/mm3 (1.3-6.7); Neutrophils Percent Manual 81 % (46-73); Platelet Estimate Adequate (Adequate)
[2022-09-14] MEDS: IPRATROPIUM 0.5 MG/ALBUTEROL SULFATE 2.5 MG AMPUL.NEB 3 ML INHALATION ×2 (06:29→11:51)
[2022-09-14] MEDS: ACETAMINOPHEN 325 MG TABLET 650 MG PO (08:52)
[2022-09-14] MEDS: FUROSEMIDE INJ 20 MG/2 ML VIAL IV PUSH (08:53)
--- NOTE | 2022-09-14 09:05 | PC.NURSE ---
Patient coughing with food and fluids. Patient states that he is not used to the oxygen and eating at the same time. Record Producer suggested very small bites of oatmeal and drinking his thickened liquids as tolerated.
--- NOTE | 2022-09-14 10:42 | PC.NURSE ---
Addendum entered by Lor Martin RN 09/14/22 10:43: CUTTING TOOL SHARPENER here to see patient and discussed transferring patient to hospital with ICU, due to need for high flow O2 and difficulty with pureed diet and thickened liquids. Patient and family in agreement at this time. CUTTING TOOL SHARPENER attempting to find out if ICU wants patient intubated prior to transfer. Awaiting further information and family arrival. Original Note: CUTTING TOOL SHARPENER here to see patient and discussed transferring patient to hospital with ICU, due to need for high flow O@
--- NOTE | 2022-09-14 14:22 | PM.SD2 ---
Same Day Admit/Disch: HPI History of Present Illness Chief complaint: BL PNEUMONIA Narrative: Hao Martinez is a 87 year old male General Chief complaint: Shortness of Breath/Dyspnea Stated complaint: ambulance Time Seen by Provider: 09/13/22 17:02 History of Present Illness HPI narrative: ?the patient is an 87-year-old male full code, who was just admitted here from 09/10 until 09/12/2022, discharged yesterday.? He was admitted for aspiration pneumonia of both lower lobes in the setting of congestive heart failure.? Received Rocephin and azithromycin intravenously as well as oxygen and nebulized treatments.? He was discharged to the long-term on oral azithromycin.? He is anticoagulated with Eliquis for atrial fibrillation.? He has had a prior aortic valve replacement.? He does have coronary artery disease, and has an ICD.? Also with hypertension hyperlipidemia, heart failure reduced ejection fraction, Lasix 40 mg daily.? History of DVT and GERD.? History of prostate cancer.? At the long-term, the patient has decompensated.? He feels short of breath.? Oxygen saturations are 89% on 6 L. he feels weak and tired.? No chest pain or abdominal pain.? No nausea or vomiting.? Does have significant pedal edema.? No other complaints.? Presents for further evaluation PMFSH Past Medical History Medical History (Updated 09/14/22 @ 14:18 by Marques Bui NP) Acute embolism and thrombosis of unspecified deep veins of unspecified lower extremity Atrial fibrillation CAD (coronary artery disease) Cellulitis of right upper limb Disorder of thyroid, unspecified Gastro-esophageal reflux disease without esophagitis Heart failure Hyperlipidemia Hypo-osmolality and hyponatremia Malignant neoplasm of prostate Pain Presence of automatic (implantable) cardiac defibrillator Sleep apnea Surgical History Surgical History Presence of xenogenic heart valve Social History Social History Smoking status: Never smoker Second hand tobacco smoke exposure: No Alcohol intake: never Substance use: never Substance use type: does not use Lack of Transportation: No Lack of Food: Never True Current Housing: I Have Housing Concerned About Future Housing: No Difficulty Paying Gas/Electric Bills: No Difficulty Paying for Meds: No Currently Unemployed: No Education: Associate Degree Difficulty w/ Childcare or Family Care: No Spiritual care concerns: No Same Day Admit/Disch: Med Pre-admit Medications Home Medications Medication Instructions Recorded Confirmed Type B-complex with vitamin C 1 cap PO DAILY 07/24/22 09/13/22 History acetaminophen 325 mg tablet 650 mg PO Q6H PRN Pain 07/24/22 09/13/22 History (Pharbetol) albuterol sulfate 90 mcg/actuation 2 inh inhalation .Once Daily 07/24/22 09/13/22 History aerosol inhaler (ProAir HFA) ascorbic acid (vitamin C) 500 mg 250 mg PO DAILY 07/24/22 09/13/22 History tablet aspirin 81 mg tablet,delayed 81 mg PO DAILY 07/24/22 09/13/22 History release (Adult Low Dose Aspirin) atorvastatin 40 mg tablet 40 mg PO QHS 07/24/22 09/13/22 History cholecalciferol (vitamin D3) 25 25 mcg PO DAILY 07/24/22 09/13/22 History mcg (1,000 unit) tablet furosemide 40 mg tablet 40 mg PO QAM 07/24/22 09/13/22 History hydrocortisone 2.5 % topical cream 1 applic RECTAL Q12H PRN 07/24/22 09/13/22 History with perineal applicator Hemorrhoids (Procto-Med HC) lisinopril 2.5 mg tablet 2.5 mg PO DAILY 07/24/22 09/13/22 History metoprolol tartrate 25 mg tablet 25 mg PO BID 07/24/22 09/13/22 History omeprazole 20 mg capsule,delayed 20 mg PO BID 07/24/22 09/13/22 History release acetaminophen 500 mg tablet 500 mg PO Q6H PRN fever or pain 07/25/22 09/13/22 Rx (Tylenol Extra Strength) #90 tabs sodium chloride 1,000 mg soluble 1,000 mg PO DAILY #90 tabs 07/25/22 09/13/22 Rx tablet
--- NOTE | 2022-09-14 14:26 | PC.NURSE ---
Daughter brought in cell phone and coal pulverizer operator for patient.
[2022-09-14] MEDS: POTASSIUM CHLORIDE 20 MEQ TABLET 40 MEQ PO (14:30)
--- NOTE | 2022-09-14 14:38 | PC.NURSE ---
Telemetry discontinued and respiratory notified to bring bi-pap in preparation for transfer. Family at bedside.
--- NOTE | 2022-09-14 15:40 | PC.NURSE ---
Carlyle at [facility] called for report, and report given. [facility] arrived to miner pick patient and transfer to [facility] ICU. Patient left on C-Pap with RT guidance. Patient left unit on stretcher accompanied by [facility] insole rounder. Patient left hospital grounds in ambulance. Personal items sent with family a time of transfer.
== END 2022-09-14 15:40 | disposition short-term general hospital (02) | DRG 194 ==
LOC: CHSED 21:10 → CHS2ND 21:37
PROVIDERS: Nurse Practitioner Family; Admitting Provider Internal Medicine; Emergency Provider Emergency Medicine; PCP Family Medicine; Visit Provider Internal Medicine
DX: J18.9 Pneumonia, unspecified organism (principal); I48.20 Chronic atrial fibrillation, unspecified; I50.9 Heart failure, unspecified; I11.0 Hypertensive heart disease with heart failure; I25.10 Atherosclerotic heart disease of native coronary artery without angina pectoris; E78.5 Hyperlipidemia, unspecified; K21.9 Gastro-esophageal reflux disease without esophagitis; C61 Malignant neoplasm of prostate; G47.30 Sleep apnea, unspecified; Z20.822 Contact with and (suspected) exposure to COVID-19; Z79.01 Long term (current) use of anticoagulants; Z86.718 Personal history of other venous thrombosis and embolism; Z95.3 Presence of xenogenic heart valve; Z95.810 Presence of automatic (implantable) cardiac defibrillator
CPT/HCPCS: 36415; 36600; 71045; 71250; 80048; 80053; 82805; 83605; 83735; 83880; 84484; 85025; 85380; 86140; 87081; 87637; 87651; 93005; 94640; 96365; 96366; 96368; 96375; 99285; A9270; J0692; J1940; J3370; J3475